=== PATIENT | male | born 1985 | race Caucasian/White ===

== ENCOUNTER 2020-07-06 | Emergency (ER) | payer SELFPAY ==
[2020-07-06 00:12] VITALS: BP 160/107; PULSE 103; RESP 20; TEMP 36.2; O2SAT 100
[2020-07-06] MEDS: TETANUS,DIPHTHERIA,AC PERTUSSIS ADULT (0.5 ML) BOOSTRIX IM (00:28)
--- NOTE | 2020-07-06 01:07 | ED.WOUNDLAC ---
HPI - Wound/Laceration General Chief Complaint: Wound/Laceration Stated Complaint: rt eyebrow lac Time Seen by Provider: 07/06/20 00:04 Source: RN notes reviewed History of Present Illness HPI narrative: Patient presents emergency department from home for right eyebrow laceration. Patient states prior to arrival he tripped while walking on a deck and striking his right eyebrow. Patient has a laceration to his right eyebrow and denies any other injuries no loss of consciousness per patient and friend that is present. Patient denies any headaches vision changes numbness or tingling in the extremities or any other symptoms. Unsure of last tetanus shot Related Data Allergies Allergy/AdvReac Type Severity Reaction Status Date / Time No Known Allergies Allergy Mild Verified 07/06/20 00:15 Review of Systems Review of Systems: Narrative: Gen.: Denies fevers or chills Eyes: Denies eye pain or visual change ENT: Denies congestion Respiratory: Denies shortness of breath CV: Denies chest pain GI: Denies abdominal pain nausea, emesis Musculoskeletal: Denies back pain or muscle pain Neuro: Denies LOC numbness or tingling Skin: See HPI Except as documented, all other systems reviewed and negative PMFSH Past Medical History Medical History (Updated 07/06/20 @ 01:10 by Delano Vallejo DO) Patient denies significant medical history Social History Social History (Updated 07/06/20 @ 01:08 by Delano Vallejo DO) Smoking status: Never smoker Exam Narrative: Exam Narrative: APPEARANCE: No acute distress, nontoxic, resting in bed EYES: EOMI HEENT: Normocephalic, TMs clear bilaterally, nares patent oromucosa moist Neck: Supple, no midline tenderness palpation full range of motion without pain RESPIRATORY: No respiratory distress Clear to auscultation bilaterally with no rhonchi wheezing or rales. CARDIOVASCULAR: Regular rate and rhythm without murmurs rubs or gallops. ABDOMINAL: Soft, nontender, nondistended, no rebound or guarding MUSCULOSKELETAl: Moves all extremities. NEURO: Awake and alert x 4. Following commands, speech normal, no focal deficits SKIN:: Warm, dry. No rashes right eyebrow has a 3 cm laceration that is T-shaped with the head of the T laterally it is linear and deep with mild venous bleeding no foreign bodies PSYCHIATRIC: Normal affect/mood, Course Course Emergency Course: Discussed with patient results of workup and diagnosis. Discussed need for follow-up with primary care, proper use of medication, and reasons to return to the emergency department. Patient understands and agrees to current treatment plan Vital Signs Vital signs: Vital Signs Temperature 97.1 F L 07/06/20 00:12 Pulse Rate 103 H 07/06/20 00:12 Respiratory Rate 20 07/06/20 00:12 Blood Pressure 160/107 H 07/06/20 00:12 Pulse Oximetry 100 07/06/20 00:12 Temperature 97.1 F L 07/06/20 00:12 Pulse Rate 103 H 07/06/20 00:12 Respiratory Rate 07/06/20 00:12 Blood Pressure 160/107 H 07/06/20 00:12 Pulse Oximetry 100 07/06/20 00:12 Procedures Laceration Laceration 1: ====== Skin Level ====== ====== Subcutaneous Layer ====== ====== Muscle Layer ====== ====== Tendon Layer ====== Dressing: Verbal consent was obtained prior to the procedure. The wound was cleaned with Betadine and irrigated with copious amounts of normal saline. Lidocaine 1% with epinephrine was used for anesthesia. Wound was explored is no foreign body seen. The wound was then closed with 7 5-0 nylon in simple interrupted fashion. A sterile dressing was applied following the procedure. Patient tolerated the procedure well Discharge Plan Discharge Clinical Impression: Eyebrow laceration Patient Disposition: Home, Self-Care Condition: Stable Instructions: Antibiotic Form, Laceration (ED) Additional Instructions: Return for bleeding from the wound signs of infection or any other symptoms of concern your
== END 2020-07-06 01:19 | disposition home or self-care (01) ==
PROVIDERS: Emergency Provider Emergency Medicine
DX: S01.111A Laceration without foreign body of right eyelid and periocular area, initial encounter (principal); W01.0XXA Fall on same level from slipping, tripping and stumbling without subsequent striking against object, initial encounter; Z23 Encounter for immunization
CPT/HCPCS: 12013; 90471; 90715; 99282

== ENCOUNTER 2021-02-18 10:20 | Emergency (ER) | payer BC, SELFPAY ==
--- NOTE | ~2021-02-18 | XR_ITS ---
EXAMINATION: XR ankle LT min 3V DATE: 02/18/2021 10:46 INDICATION: Left ankle injury and pain. TECHNIQUE: 3 views of left ankle were obtained. COMPARISON: None. FINDINGS: There is an oblique fracture of distal fibula. The anteromedial aspect of the fracture line is at the level of the tibial plafond. The distal fracture fragment demonstrates 2 mm posterior disp lacement. Joint spaces are normal. There is ankle soft tissue swelling. IMPRESSION: 1. Oblique fracture of distal fibula. Reviewed, dictated and finalized at location B.
--- NOTE | ~2021-02-18 | XR_ITS ---
EXAMINATION: XR knee LT 3V DATE: 02/18/2021 10:46 INDICATION: Left knee injury. TECHNIQUE: 3 views of left knee were obtained. COMPARISON: None. FINDINGS: Bone alignment is normal. No fracture. Joint spaces are well maintained. There is no knee j oint effusion. IMPRESSION: 1. Normal left knee. Reviewed, dictated and finalized at location B. IMPRESSION: 1. Normal left knee.
[2021-02-18 10:25] VITALS: BP 128/86; PULSE 110; RESP 18; TEMP 37.2; O2SAT 98
--- NOTE | 2021-02-18 10:33 | ED.GENADULT ---
HPI - General Adult General Chief complaint: Extremity Injury, Lower Stated complaint: left knee injury Time Seen by Provider: 02/18/21 10:22 Source: patient and RN notes reviewed Mode of arrival: ambulatory Limitations: no limitations History of Present Illness HPI narrative: Patient is a 35-year-old male who presents with left lower extremity injuries that occurred last night while walking home stepped into a ditch and is since had moderate to severe aching pain of the ankle and the left knee patient notes he has crutches at home has been unable to effectively bear weight presents in no distress does not appear uncomfortable denies similar occurrence or other injuries has not taken anything for his symptoms Related Data Allergies Allergy/AdvReac Type Severity Reaction Status Date / Time No Known Allergies Allergy Mild Verified 02/18/21 10:24 Review of Systems Review of Systems: All systems reviewed & are unremarkable except as noted in HPI and below PMFSH Past Medical History Medical History Patient denies significant medical history Social History Social History Smoking status: Never smoker Exam Narrative: Exam Narrative: GENERAL: Well-appearing, well-nourished, and in no acute distress. HEAD: Normocephalic, atraumatic. EYES: PERRLA and EOMI. ENT: Nares clear, no rhinorrhea or epistaxis. Mucous membranes moist. CHEST: Clear to auscultation. No respiratory distress. No wheezes rales or rhonchi HEART: Regular rate and rhythm. No murmur heard. Normal peripheral pulses. EXTREMITIES: Swelling and tenderness throughout the ankle joint worse on the lateral aspect left lower extremity. Tenderness posterior left knee no deformity SKIN: Warm, dry, no rash. NEURO: No focal deficits. Alert and oriented x3. Cranial nerves II through XII grossly intact. Neurovascularly intact PSYCH: Normal mood and affect. Course Course Emergency Course: Patient in the room at this time aware of case findings treatment plan and diagnosis will be placed in splint and referred to orthopedics agrees with this plan Vital Signs Vital signs: Vital Signs Temperature 99.0 F 02/18/21 10:25 Pulse Rate 110 H 02/18/21 10:25 Respiratory Rate 18 02/18/21 10:25 Blood Pressure 128/86 02/18/21 10:25 Pulse Oximetry 98 02/18/21 10:25 Temperature 99.0 F 02/18/21 10:25 Pulse Rate 110 H 02/18/21 10:25 Respiratory Rate 18 02/18/21 10:25 Blood Pressure 128/86 02/18/21 10:25 Pulse Oximetry 98 02/18/21 10:25 Procedures Orthopedic Splinting/Casting Injury #1: Splinting/Casting Date: 02/18/21 Splinting/Casting Time: 12:23 Side: left Lower Extremity Injury Location: ankle Splint: customized in ED OCL: short leg Pre-Procedure Neuro Vascular Exam: normal Post-Procedure Neuro Vascular Exam: normal Medical Decision Making MDM Narrative Medical decision making narrative: Patients injury or pain is consistent with musculoskeletal etiology. No signs of neurological or vascular compromise on exam. Compartments and tisues are soft without signs of compartment syndrome. Pain is felt appropriate for further evaluation on an outpatient basis. Vital Signs Vital Signs: Vital Signs Temperature 99.0 F 02/18/21 10:25 Pulse Rate 110 H 02/18/21 10:25 Respiratory Rate 18 02/18/21 10:25 Blood Pressure 128/86 02/18/21 10:25 Pulse Oximetry 98 02/18/21 10:25 Temperature 99.0 F 02/18/21 10:25 Pulse Rate 110 H 02/18/21 10:25 Respiratory Rate 18 02/18/21 10:25 Blood Pressure 128/86 02/18/21 10:25 Pulse Oximetry 98 02/18/21 10:25 Imaging Data Radiologist's impression: ITS Impressions Knee X-Ray 02/18/21 10:47 IMPRESSION: 1. Normal left knee. Ankle X-Ray 02/18/21 10:48 IMPRESSION: 1. Oblique fracture of distal fibula.
[2021-02-18] MEDS: HYDROcodone/acetaminophen (*CRX) 5-325 MG TABLET 1 TAB PO (12:03)
[2021-02-18] MEDS: IBUPROFEN 600 MG TABLET PO (12:04)
== END 2021-02-18 13:10 | disposition home or self-care (01) ==
PROVIDERS: Emergency Provider Emergency Medicine
DX: S82.832A Other fracture of upper and lower end of left fibula, initial encounter for closed fracture (principal); M25.562 Pain in left knee; W18.42XA Slipping, tripping and stumbling without falling due to stepping into hole or opening, initial encounter
CPT/HCPCS: 29515; 73562; 73610; 99284; A9270